=== PATIENT | male | born 1955 | race Caucasian/White ===

== ENCOUNTER 2016-05-16 20:53 | Emergency (ER) | payer BC ==
[2016-05-16 21:02] VITALS: RESP 18; TEMP 97.3
--- NOTE | 2016-05-16 21:58 | EDPHY ---
H & P Stated Complaint: right back pain radiated to lower leg Time Seen by Provider: 05/16/16 21:57 - Personal History Current Tetanus/Diphtheria Vaccine: Unsure Current Tetanus Diphtheria and Acellular Pertussis (TDAP): Unsure Tetanus Vaccine Date: <10 years - Medical/Surgical History Hx Asthma: No Hx Chronic Respiratory Disease: No Hx Diabetes: No Hx Cardiac Disease: No Hx Renal Disease: No Hx Cirrhosis: No Hx Alcoholism: No Hx HIV/AIDS: No Hx Splenectomy or Spleen Trauma: No Other PMH: high cholesterol, - Social History Smoking Status: Never smoked Constitutional: Initial Vital Signs Temperature (C) 36.3 C 05/16/16 20:59 Heart Rate 95 05/16/16 20:59 Respiratory Rate 18 05/16/16 20:59 Blood Pressure 142/84 H 05/16/16 20:59 O2 Sat (%) 95 05/16/16 20:59 O2 Delivery Mode Room Air Allergies/Adverse Reactions: No Known Allergies Allergy (Unverified 05/16/16 21:02) Home Medications: Medication Instructions Recorded Atorvastatin Calcium 05/16/16 methylPREDNISolone [Medrol Dose 1 each PO AD #1 ea 05/16/16 Andrea] oxyCODONE IR [Oxycodone Ir (*)] 5 - 10 mg PO Q6 PRN #30 tab 05/16/16 Medical Decision Making ED Course/Re-evaluation: CHIEF COMPLAINT: Right lower back pain. HISTORY OF PRESENT ILLNESS: The patient is a 61-year-old male who presents with right lower back pain for the last 2 weeks. The pain was initially severe and started to go away after a few chiropractor appointments but came back severely today. The pain radiates to his right leg. He has pain with walking. He denies numbness or weakness. REVIEW OF SYSTEMS: A 10 point review of systems was performed and is negative with the exception of the elements mentioned in the history of present illness. PHYSICAL EXAM: HR, BP, O2 Sat, RR. Temp noted General Appearance: Alert, well hydrated, appropriate, and non-toxic appearing. Head: Atraumatic without scalp tenderness or obvious injury Eyes: Pupils equal, round, reactive to light and accommodation, EOMI, no trauma , no injection. Ears: Clear bilaterally, no perforation, normal landmarks Nose: Atraumatic, no rhinorrhea, clear. Throat: There is no erythema or exudates, no lesions, normal tonsils, mucus membranes moist. Neck: Supple, 2+ carotid upstroke, nontender, no lymphadenopathy. Respiratory: No retractions, no distress, no wheezes, and no accessory muscle use. Lungs are clear to auscultation bilaterally. Cardiovascular: Regular rate and rhythm, no murmurs, rubs, or gallops. Bilateral carotid, radial, dorsalis pedis, and posterior tibial pulses intact. Good capillary refill all extremities. Gastrointestinal: Abdomen is soft, nontender, non-distended, no masses, no rebound, no guarding, no peritoneal signs. Musculoskeletal: Normal active ROM of all extremities, atraumatic. Back: Tenderness over right sacroiliac joint. No midline tenderness. Neurological: Alert, appropriate, and interactive. The patient has normal DTRs and non-focal cranial nerves, motor, sensory, and cerebellar exam. Skin: No rashes, good turgor, no nodules on palpation. Past medical history:Hypercholesterolemia. Past surgical history:Denies. Family history:N/A. Social history:. DIAGNOSTICS/PROCEDURES/CRITICAL CARE TIME: DIFFERENTIAL DIAGNOSIS: The differential diagnosis for the patient's back pain included but was not limited to musculo-skeletal pain, epidural abscess, herniated disk, spinal fracture, and intra-abdominal causes including urinary system. MEDICAL DECISION MAKIN-year-old male presents with right lower back pain. The pain began two weeks ago but he denies an acute onset. The pain is severe and worsened with movement. It radiates down his right leg. On exam he has tenderness over his right sacroiliac joint. He has no midline tenderness. He has no weakness or other neuro deficits on exam. Because the pain did not onset in an acute fashion and he has tenderness directly over the sacroiliac joint I believe this represents sacroiliitis. He does not need MRI imaging tonight. He and his are flying back to [place] tomorrow. He will be given 60mg PO Prednisone tonight and sent home with a take home pack of pain medications. I have instructed him to follow up with a physical medicine rehabilitation doctor when he returns home to [place]. Departure - Departure Disposition: Home, Routine, Self-Care Clinical Impression: Sacroiliitis Condition: Good Instructions: Sacroiliitis (ED), Oxycodone/Acetaminophen (By mouth) Additional Instructions: Follow up with a physical medicine rehabilitation doctor when you return home. Return to the emergency department if you experience any serious worsening of condition. Referrals: MARTHA ROLLINS [Other] - As per Instructions Report Scribed for: Tyler Brumfield Report Scribed by: Mario Alberto Montoya Date of Report: 05/16/16 Time of Report: 22:01
[2016-05-16] MEDS ORDERED: predniSONE 20 MG TAB PO ONE (22:04)
[2016-05-16] MEDS ORDERED: OXYCODONE/APAP 5/325MG PREPACK#4 BTL TAKEHOME ONE (22:04)
[2016-05-16 22:15] VITALS: BP 136/85; PULSE 85; O2SAT 96
== END 2016-05-16 22:18 | disposition home or self-care (01) ==
DX: M46.1 Sacroiliitis, not elsewhere classified (principal)